=== PATIENT | female | born 1950 | race Caucasian/White ===

== ENCOUNTER 2019-06-16 05:57 | Day surgery (SDC) | payer MEDICARE, SELFPAY ==
[2019-06-15 13:33] VITALS: BMI 19.8
[2019-06-16] VITALS (9 sets, daily range): BP systolic 134–185; BP diastolic 72–98; PULSE 54–78; RESP 15–24; TEMP 36.6–37.2; O2SAT 87–99
--- NOTE | 2019-06-16 | CT_ITS ---
Guided Bronchoscopy Planning CT images; total exam DLP: 567.16 mGy-cm MTDD
[2019-06-16] MEDS: sodium chloride 0.9% 1,000 ML 30 ML IV (06:18)
--- NOTE | 2019-06-16 06:33 | P.HPUD_ITS ---
Surgery/Procedure H&P Update DATE OF PROCEDURE: June 16, 2019 The patient was recently seen and examined in the office. There is no signi ficant change in overall history and physical exam. The patient missed her appointment for pulmonary function testing. Interestingly, her oxygen saturation was 88% and she is requiring some oxygen to keep it above 88%. The patient does not use oxygen at home. I have discussed risks with benefits associated with the procedure. The patient appeared somewhat forgetful this morning. During the last office visit, the patient stated preference for a less invasive and radiation therapy however today, patient is stating that she would prefer surgery. It is unclear to me whether the patient has changed her mind or she has forgotten what she had told me before. DATE H&P PERFORMED: 06/13/19 PREOP DIAGNOSIS: Lung Cancer PLANNED PROCEDURE: Operation Date: 06/16/19 07:00 Proposed Procedures p Ebus 42836 99393 R91.8(Not Applicable) - MD joão Lebron(Not Applicable) - Darin Cardenas MD Bronchoscopy with inspection of the airway, endobronchial also guided transbronchial needle aspiration of lymph nodes and navigational bronchoscopy guided transbronchial biopsies, fine-needle aspiration and Cytobrush. Transthoracic fine-needle aspiration of the left upper lobe lung nodule.
--- NOTE | 2019-06-16 06:41 | P.ANESASSM_ITS ---
Pre-Anesthetic Assessment Pre-Anesthetic Assessment: Height/Weight: Height 1.68 m Weight 55.792 kg Temp Pulse Resp BP Pulse Ox 97.9 F 75 24 H 185/98 87 L 06/16/19 06:12 06/16/19 06:12 06/16/19 06:12 06/16/19 06:12 06/16/19 06:12 Preop Diagnosis: Lung Cancer Proposed Procedure: Operation Date: 06/16/19 07:00 Proposed Procedures p Ebus 91394 21328 R91.8(Not Applicable) - MD joão Lebron(Not Applicable) - Darin Cardenas MD Was Beta Latisha taken within 24 hours: Yes (last night) Last intake: Intake Last Liquid Date 06/15/19 Last Liquid Time 18:00 Last Solid Date 06/15/19 Last Solid Time 18:00 Social: Social History: Tobacco (1/2pk day) Exam: Pre-Anes Outpt Exam: alert and oriented x 3 Airway: Submandibular: WNL Cervical ROM: WNL MP: 2 Dentition: False Pulmonary: Pulmonary: COPD Comments: lung mass room air sat 86% CV/HEM: CV/HEM: CAD and OK Comments: CABG stents 3 yr ago. Sees Contact Center Representative in [facility] home. Seen 1 month ago. added add'l dose of Imdur. No other changes or complaints. : : None reported Hepatic: Hepatic: None reported GI: GI: None reported Metabolic: Metabolic: None reported Musc/skel: Musc/skel: None reported Neuropsych: Neuropsych: None reported Comments: difficulty remembering things Anesthetic Plan: ASA status: 4 Anesthesia: General Meds/Allergies Current Medications: Current Medications Generic Name Dose Route Start Last Admin Trade Name Freq PRN Reason Stop Dose Admin Sodium Chloride 1,000 mls @ 30 ml s/hr 06/16/19 06:00 06/16/19 06:18 Sodium Chloride 0.9% IV 06/17/19 05:59 30 mls/hr .Q24H CHANTAL Administration PFSH Anesthesia PFSH: Medical History Anxiety CAD (coronary artery disease) 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 Essential (primary) hypertension Hyperlipidemia Lung mass Surgical History (Updated 06/15/19 @ 13:25 by Radha Burch) History of hysterectomy Social History Smoking and tobacco status: current every day smoker cigarettes Packs smoked per day: 1 Years cigarettes smoked: 50 Quit status (tobacco): not considering quitting Smoking risk assessment/counseling performed?: Yes Alcohol intake: never Lives independently: Yes Household members: none Current occupational status: retired History of recent travel: No Current gender identity: Female Female Reproductive History: Date of last menstrual period: 04/05/79 Data Anesthesia Cardiac Studies: No Data to Display
--- NOTE | 2019-06-16 06:50 | ECG_ITS ---
Measurements Intervals [place] Rate: 68 P: 80 IA: 166 QRS: -47 QRSD: 128 T: 115 QT: 458 QTc: 488 SINUS RHYTHM MARKED LEFT AXIS DEVIATION [QRS AXIS < -30] POSSIBLE ANTERIOR MYOCARDIAL INFARCTION [30 ms Q WAVE IN V3/V4, OR R < 0.2 mV IN V4], OF INDETERMINATE AGE MODERATE T-WAVE ABNORMALITY, CONSIDER LATERAL ISCHEMIA [-0.1+ mV T WAVE IN I/aVL/V5/V6] No previous ECG available for comparison Electronically Signed On 06-16-2019 13:01:18 CDT by Jenae Easton M.D. [id number]
[2019-06-16] MEDS: ipratropium-albuterol 3 mL Neb INHALATION (07:42)
[2019-06-16] MEDS: lidocaine 1% INJ 20 mL INTRAVESIC (08:08)
[2019-06-16] MEDS: EPINEPHrine 1 mg/mL INJ XX (08:37)
--- NOTE | 2019-06-16 09:52 | SUR.PREOP ---
patient presented to Outpatient Surgery 06/16/19 at 0600 with oxygen saturation at 87% and below. Faxed and called HOME request for home oxygen.
--- NOTE | 2019-06-16 10:10 | PM.OP ---
Operative Report Date of procedure: June 16, 2019 Pre-op Diagnosis: Left upper lobe lung mass Post-op diagnosis: same Brief History: This is a 68-year-old lady coming in for a bronchoscopic evaluation for left upper lobe lung mass. Procedure: Name of the procedure: Bronchoscopy with inspection of the airway, bronchoalveolar lavage, transbronchial biopsies, fine-needle aspiration and Cytobrush under navigational guidance, endobronchial ultrasound-guided transbronchial needle aspiration of lymph nodes and control of bleeding. Indication: Left upper lobe lung mass Anesthesia: General anesthesia. Local anesthesia: The josue in the right and left mainstem bronchi were anesthetized with 1% lidocaine, 3 mL. Description of the procedure: The procedure was explained to the patient and the consent was obtained. The patient was brought to the OR. The patient underwent endotracheal intubation for general anesthesia. Following induction of general anesthesia, the bronchoscope was advanced through the ET tube. The lower trachea appeared to be normal, no endotracheal lesion was seen. The josue was sharp. The josue, the right and left mainstem bronchi are anesthetized with 1% lidocaine. In a systematic manner bilateral bronchial tree was then examined. The bronchoscope was advanced into the left mainstem bronchus. There was no erythema,mucus or areas of cobblestoning. The left upper lobe, lingula and left lower lobe bronchi were examined up to the third subsegmental level and no abnormalities were identified. There is no endobronchial lesion, active bleeding or mucous plug. The bronchoscope was then introduced into the right mainstem bronchus. The right upper lobe, right middle lobe and right lower lobe bronchi were examined up to the third subsegmental level and no abnormalities were identified. Using navigational bronchoscopy, transbronchial biopsies were performed from the left upper lobe lung mass. 7 samples are obtained. Fine-needle aspiration was performed under navigational guidance. Multiple specimens were obtained. Cytobrush was performed from the same lesion. Bronchoalveolar lavage was performed from the posterior segment of the left upper lobe. 60 mL of saline was used, fluid return was 20 mL. The fluid was bloody. The endobronchial ultrasound was introduced through the ET tube. No significant mediastinal or hilar lymphadenopathy was identified. Transbronchial needle aspiration was performed from 7 and 10 L lymph node stations. Samples: 1. The transbronchial biopsies are sent for histopathology 2. The fine-needle aspirations were sent for cytology. 3. The Cytobrush was sent for cytology. 4. The transbronchial needle aspiration of the aforementioned lymph node groups were sent for cytology. Complications: There was no immediate complications. The patient had some bleeding that was controlled with cold saline and epinephrine. Follow-up: 1. Wait for histopathology analysis. 2. Follow-up in the office in 2 weeks time.
== END 2019-06-16 11:53 | disposition home or self-care (01) ==
PROVIDERS: Family Provider Family Medicine; PCP Family Medicine; Visit Provider Internal Medicine Critical Care Medicine
PROC: BB4BZZZ Ultrasonography of Pleura (ICD-10-PCS; CPT 31623; principal; 2019-06-16 07:00)
PROC: 0BJ08ZZ Inspection of Tracheobronchial Tree, Via Natural or Artificial Opening Endoscopic (ICD-10-PCS; CPT 31622; 2019-06-16 07:00)
PROC: 0BJ08ZZ Inspection of Tracheobronchial Tree, Via Natural or Artificial Opening Endoscopic (ICD-10-PCS; CPT 31622; 2019-06-16 07:00)
DX: R91.8 Other nonspecific abnormal finding of lung field (principal); F17.210 Nicotine dependence, cigarettes, uncomplicated; J44.9 Chronic obstructive pulmonary disease, unspecified; I25.10 Atherosclerotic heart disease of native coronary artery without angina pectoris; I25.2 Old myocardial infarction; Z95.1 Presence of aortocoronary bypass graft; I10 Essential (primary) hypertension; E78.5 Hyperlipidemia, unspecified; Z79.82 Long term (current) use of aspirin
CPT/HCPCS: 31623; 31624; 31628; 31629; 31652; 12345; 77011; 88112; 88305; 88307; 93005; 94640; J0171; J2001; J2405; J2704; J2710; J3010; J3490; J7030

== ENCOUNTER 2019-07-31 07:39 | Inpatient (IN) | payer MEDICARE, SELFPAY ==
--- NOTE | 2019-07-27 12:40 | ECG_ITS ---
Measurements Intervals [place] Rate: 54 P: 81 NM: 149 QRS: -59 QRSD: 126 T: 106 QT: 486 QTc: 463 SINUS BRADYCARDIA POSSIBLE RIGHT ATRIAL ENLARGEMENT [0.25mV P WAVE] LEFT ATRIAL ENLARGEMENT [-0.15mV P WAVE IN V1/V2] MARKED LEFT AXIS DEVIATION [QRS AXIS < -30] POSSIBLE ANTERIOR MYOCARDIAL INFARCTION [30 ms Q WAVE IN V3/V4, OR R < 0.2 mV IN V4], OF INDETERMINATE AGE Compared to ECG 06/16/2019 07:39:30 Atrial abnormality now present Sinus rhythm no longer present T-wave abnormality no longer present Possible ischemia no longer present Myocardial infarct finding still present Electronically Signed On 07-27-2019 18:14:28 CDT by Lorene Ramirez M.D. [id number]
--- NOTE | 2019-07-27 12:58 | PC.NURSE ---
pt stated she is working on her advance directive and will bring with her day of surgery.
--- NOTE | 2019-07-27 13:31 | ANES.PREANE2 ---
Pre-Anesthetic Assessment Pre-Anesthetic Assessment: Height/Weight: Height 1.68 m Preop Diagnosis: Left upper lobe lung mass Proposed Procedure: Operation Date: 07/31/19 09:40 Proposed Procedures p Lobectomy 37526 R91.8(Not Applicable) - Jp Olguin MD Social: Social History: Alcohol (occ) and Tobacco (quit one week ago) Exam: Pre-Anes Outpt Exam: alert, oriented x 3, clear to auscultation bilaterally and regular rate & rhythm Airway: Submandibular: WNL Cervical ROM: WNL MP: 1 Dentition: False (upper and lower) History/ROS: No significant history except as noted Pulmonary: Pulmonary: COPD and GALVAN CV/HEM: CV/HEM: CAD and HTN : : None reported Hepatic: Hepatic: None reported GI: GI: None reported Metabolic: Metabolic: Hyperlipidemia Musc/skel: Musc/skel: OA/DJD Neuropsych: Neuropsych: Anxiety and Depression Anesthetic Plan: ASA status: 3 Anesthesia: Anesthesia Evaluation, Eval. 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 Essential (primary) hypertension Hyperlipidemia Lung mass Surgical History History of hysterectomy Hx of CABG Presence of stent in coronary artery Social History Smoking and tobacco status: former smoker Quit status (tobacco): has quit using tobacco Year quit tobacco: 07/23 Smoking risk assessment/counseling performed?: Yes Alcohol intake: never Lives independently: Yes Household members: none Current occupational status: retired History of recent travel: No Current gender identity: Female Female Reproductive History: Date of last menstrual period: 04/05/79 Data Anesthesia Cardiac Studies: No Data to Display
[2019-07-27 13:46] LABS: Basophils # 0.1 10^3/uL (0.0-0.1); Basophils % 1.3 %; Eosinophils # 0.2 10^3/uL (0.0-0.8); Eosinophils % 2.1 %; Hematocrit 43.6 % (37.0-47.0); Hemoglobin 13.1 g/dL (11.5-15.3); Lymphocytes # 2.6 10^3/uL (0.8-4.8); Mean Corpuscular Hemoglobin 27.1 pg (28.0-34.0); Mean Corpuscular Volume 90.1 fL (81-99); Mean Platelet Volume 11.1 fL (7.4-10.4); Monocytes # 0.5 10^3/uL (0.2-0.9); Monocytes % 6.5 %; Neutrophils # 4.8 10^3/uL (1.8-7.7); Neutrophils % 58.7 %; Nucleated Red Blood Cells % 0 %; Platelet Count 294 10^3/cmm (130-400); Red Blood Count 4.84 10^6/uL (4.1-5.3); Red Cell Distribution Width 18.9 % (12.1-15.1); White Blood Count 8.3 10^3/uL (4.0-10.0)
[2019-07-27 13:58] LABS: INR 0.97 (0.8-1.2)
[2019-07-27 13:59] LABS: Blood Urea Nitrogen 13 mg/dL (8-23); Calcium 9.3 mg/dL (8.5-10.5); Carbon Dioxide 32 mmol/L (22-29); Chloride 100 mmol/L (98-107); Glomerular Filtration Rate 98.8 mL/min (90-130); Glucose 142 mg/dL (65-115); Osmolality Calculated 291 mOsm/kg (285-295); Sodium 141 mmol/L (136-145)
[2019-07-31] VITALS (20 sets, daily range): BP systolic 112–154; BP diastolic 59–97; PULSE 47–66; RESP 16–21; TEMP 36.2–36.6; O2SAT 95–99
--- NOTE | 2019-07-31 08:21 | P.ANESUD_ITS ---
Pre-Anesthetic Update Pre-Anesthetic Assessment: Date of Surgery/Procedure: 07/31/19 Preop Tracey gnosis: Left upper lobe lung mass Proposed Procedure: Operation Date: 07/31/19 09:40 Proposed Procedures p Lobectomy 72139 R91.8(Not Applicable) - Jp Olguin MD Any changes to Pre-Anesthetic Assessment?: No Last Intake: NPO > 8 hrs Labs Last 48hrs: Laboratory Results - last 48 hr 07/27/19 13:15 Blood Type O Positive Rho(D) Type Positive Antibody Screen Negative Crossmatch See Detail Exam: Pre-Anes Outpt Exam: alert, oriented x 3, clear to auscultation bilaterally and regular rate & rhythm Other Pertinent Information: Other Pertinent Information: Plavix last taken on 07/24 - no other blood thinners, patient agrees to epidural Cardiac Studies: No Data to Display
[2019-07-31 08:33] LABS: Add Urine Microscopic? YES; Bilirubin Urine Neg (NEGATIVE); Blood Urine Neg (Negative); Glucose Urine UA Norm (Normal); Ketones Urine Negative (Negative); Leukocyte Esterase Urine Trace (Negative); Nitrate Urine Negative (Negative); Protein Urine Neg (Negative); Specific Gravity, Urine 1.025 (1.005-1.030); Urine Appearance Clear (CLEAR); Urine Color Yellow (Yellow); Urobilinogen Urine Norm (Negative)
[2019-07-31] MEDS: sodium chloride 0.9% 1,000 ML 30 ML IV (08:33)
[2019-07-31 08:42] LABS: Add Urine Culture? No; Bacteria Urine 1+; Mucus Urine 1+; Squamous Epithelial Cell Urine 0-4 (0-5); WBC Urine RARE /hpf (0-5)
[2019-07-31] MEDS: midazolam 1 mg/mL INJ 2 mL 2 MG IVP (08:43)
--- NOTE | 2019-07-31 09:04 | P.ANES_ITS ---
Anesthesia Procedures Procedure/Date: 07/31/19 Epidural: Time Out Performed: Yes Consents Signed: Procedure Consent Consent: requested by attending/covering physician, from patient, risks and benefits reviewed and patient agrees to proceed Thoracic Level: other (T6-7) Epidural position: sitting Epidural procedure: sterile prep of area, 1% lid ocaine to numb the area, 18 g needle, negative for paresthesia passed, neg for paresthesia, test dose given, 1.5% xylocaine 1:200k epi (3 ml), no systemic response, sterile dressing applied and L.U.D. no apparent complications Additional Comments: LOSS of resistance at 5, threaded to 11 cm
--- NOTE | 2019-07-31 09:41 | W.PM.OPSUD ---
Surgery/Procedure H&P Update DATE OF PROCEDURE: July 31, 2019 DATE H&P PERFORMED: 07/27/19 H&P UPDATE INFORMATION: I have reviewed H&P completed within last 30 days, I have examined patient prior to procedure and No changes to prior documentation CHANGES TO PREVIOUS DOCUMENTATION: Patient has been appropriately marked this morning with a day of surgery for left-sided thoracotomy. PREOP DIAGNOSIS: Left upper lobe lung mass PRIMARY INDICATION FOR PROCEDURE: Cavitary lesion left upper lobe previously documented malignancy by navigational directed bronchoscopic biopsy by Dr. Cardenas. Resection as been recommended. PLANNED PROCEDURE: Operation Date: 07/31/19 09:40 Proposed Procedures p Lobectomy 32932 R91.8(Not Applicable) - Jp Olguin MD
[2019-07-31] MEDS: vancomycin 1,000 MG SDV 2000 MG IRRIGATION (10:54)
--- NOTE | 2019-07-31 11:01 | SUR.OPER ---
1058 - Pt's sister Ramya notified of surgery start via her cell phone.
--- NOTE | 2019-07-31 13:16 | P.OP_ITS ---
Operative Report Date of procedure: July 31, 2019 Pre-op Diagnosis: Left upper lobe lung mass Post-op diagnosis: same Procedure Done: Left upper lobectomy Specimens removed/disposition: Left upper lobe. Frozen section of bronchial margin was without evidence for malignancy Lymph node harvesting from the left hilum and left AP window Surgeon: Jp Olguin Anesthesia: General (Double-lumen endotracheal) and Epidural Estimated blood loss (mL): 150 IV fluids (mL): 800 Complications: None: Post procedure chest x-ray pending Findings: Extensive adhesions medially and apically Condition: stable Disposition: ICU Brief History: 68-year-old female originally presented after noting left shoulder discomfort. She was seen by her primary care provider where chest x- ray of the left upper lobe lesion. She is undergone Evaluation including CT scan and PET scan imaging which does show increased activity. She was seen by Dr. Cardenas underwent navigational endobronchial biopsy with suspicious findings on pathology. Left upper lobectomy was recommended. Details risk procedure carefully and frankly discussed. Proper consents have been reviewed and signed. Procedure: Thoracic epidural catheter was placed prior to entering the surgical suite. Ms. Mae underwent general endotracheal anesthesia with double-lumen endotracheal tube placed. Appropriate invasive lines were placed. She was placed in the right lateral decubitus position over axillary roll and protective padding. Her entire left chest was sterilely prepped and draped. A muscle- sparing limited left thoracotomy incision was made with cautery used to control bleeding. Latissimus muscle was divided. The anterior serratus muscle was retracted but not divided. The fifth intercostal space was entered. Moist laparotomy pads and the Finochietto retractor were placed. The chest was car efully opened. Left upper lobe mass could be easily palpated with associated parenchymal pleural dimpling. There were extensive adhesions medially and apically which required meticulous dissection with cautery and Metzenbaum scissors to release. This was most probably associated with her prior CABG and I suspect probably harvesting of the left internal mammary artery. The pleura was then opened circumferentially around the hilum. Inferior pulmonary ligament was taken down. Hilar dissection was initiated anteriorly and superiorly. The superior pulmonary vein was controlled and stapled. It was then divided. Dissection was then continued cranially isolating branches of the pulmonary artery to the left upper lobe. These were also taken down ligated and divided. The fissure was complete, therefore dissection of these vessels was not problematic. Posteriorly, the bronchus to the left upper lobe was dissected free. Next, left upper lobe bronchus was stapled and sharply divided with scalpel. Left upper lobe specimen was removed. Frozen section pathology report reveals a the bronchial margin was free of disease. Lymph node sampling was then performed in the mediastinum at the AP window and in the left hilum. The entire chest was irrigated with large amounts of antibiotic solution. Left lower lobe was reinflated. No substantial air leaks were identified. 28 Kazakh drain was placed over the diaphragm and out to the apex. This was connected to Pleur-evac suction. Retractor and sponges were removed. Sponge and needle count was correct. Chest wall was reapproximated with interrupted #1 Vicryl suture. The fascia was closed with running 0 Vicryl suture. The subcutaneous layer was closed with 2-0 Vicryl suture. Skin was reapproximated in a subcuticular manner with 3-0 Monocryl suture. Sterile dressing was applied. Patient was returned to the supine position and awakened from anesthesia. She was extubated. She was then transferred to the ICU. Her sister was counseled by phone. I have conferred with our pathology colleagues. Chest x-ray is pending.
--- NOTE | 2019-07-31 13:58 | XR_ITS ---
WS: [id number] PORTABLE CHEST HISTORY: post op lobectomy COMPARISON: 12/30/2005 Prior LEFT upper lobectomy. Single LEFT chest tube with tip directed superiorly. There is a very tiny pneumothorax at the apex. Numerous surgical clips at the LEFT hilum. Chronic emphysematous changes i n the RIGHT lung. Prior CABG. Small amount of subcutaneous emphysema over the LEFT thorax. Cardiac size: Normal. Mediastinum/Aorta: Mild atherosclerosis aorta. No osseous abnormality seen. XR/XR chest 1V portable [id number] IMPRESSION: 1. Status post LEFT upper lobectomy and LEFT subcutaneous emphysema. 2. Single LEFT chest tube with tiny residual pneumothorax at the apex.
[2019-07-31] MEDS: ipratropium-albuterol 3 mL Neb INHALATION (15:53)
[2019-07-31] MEDS: lactated ringers 1,000 ML 100 ML IV (17:22)
[2019-07-31] MEDS: metoprolol tartrate 50 mg Tablet 100 MG PO (18:18)
[2019-07-31] MEDS: gabapentin 300 mg Capsule PO ×2 (18:18→21:13)
[2019-07-31] MEDS: isosorbide mononitrate ER 30 mg Tablet PO (18:19)
[2019-07-31] MEDS: ketorolac 30 mg/mL INJ IVP (18:21)
[2019-08-01] VITALS (19 sets, daily range): BP systolic 108–144; BP diastolic 50–87; PULSE 63–77; RESP 14–23; TEMP 36.7–36.9; O2SAT 93–100
[2019-08-01] MEDS: ketorolac 30 mg/mL INJ IVP ×3 (00:25→14:24)
[2019-08-01] MEDS: morphine 4 mg/mL SDV 1 mL 2 MG IVP ×2 (02:40→08:40)
[2019-08-01] MEDS: lactated ringers 1,000 ML 100 ML IV ×2 (03:25→13:26)
[2019-08-01 04:38] LABS: Basophils % 0.2 %; Hematocrit 35.4 % (37.0-47.0); Hemoglobin 10.6 g/dL (11.5-15.3); Lymphocytes # 1.2 10^3/uL (0.8-4.8); Lymphocytes % 12.2 %; Mean Corpuscular HGB Conc 29.9 g/dL (30.0-36.0); Mean Corpuscular Hemoglobin 27.6 pg (28.0-34.0); Mean Corpuscular Volume 92.2 fL (81-99); Mean Platelet Volume 11.2 fL (7.4-10.4); Monocytes # 0.8 10^3/uL (0.2-0.9); Monocytes % 8.3 %; Neutrophils # 7.5 10^3/uL (1.8-7.7); Nucleated Red Blood Cells % 0 %; Platelet Count 226 10^3/cmm (130-400); Red Blood Count 3.84 10^6/uL (4.1-5.3); Red Cell Distribution Width 18.9 % (12.1-15.1); White Blood Count 9.4 10^3/uL (4.0-10.0)
[2019-08-01 05:07] LABS: Anion Gap 12.1 (5-19); Blood Urea Nitrogen 16 mg/dL (8-23); Calcium 8.6 mg/dL (8.5-10.5); Carbon Dioxide 30 mmol/L (22-29); Chloride 105 mmol/L (98-107); Glucose 120 mg/dL (65-115); Osmolality Calculated 294 mOsm/kg (285-295); Potassium 4.1 mmol/L (3.5-5.1); Sodium 143 mmol/L (136-145)
--- NOTE | 2019-08-01 06:00 | XR_ITS ---
WS: [id number] PORTABLE CHEST HISTORY: POD#1 s/p Left upper lobectomy COMPARISON: 07/31/2019 Status post CABG. Single LEFT thoracostomy tube is present with tip directed superiorly. Suspect very tiny residual apical pneumothorax. Small amount of persistent LEFT subcutaneous emphysema. Slight vo lume loss LEFT thorax due to LEFT upper lobectomy. Hyperexpanded lungs with evidence for chronic emphysema. No pneumonia. No pleural effusion or pneumot horax. Cardiac size: Normal. Mediastinum/Aorta: Mild atherosclerosis aorta, Unchanged. No osseous abnormality seen. XR/XR chest 1V portable [id number] IMPRESSION: 1. Status post LEFT upper lobectomy. 2. Single LEFT thoracostomy tube with tiny residual pneumothorax. 3. Satisfactory postoperative appearance.
--- NOTE | 2019-08-01 07:07 | PM.PN ---
Subjective Subjective: Interval history: Postop day #1 status post left upper lobectomy. Up in chair on rounds. Looks very good. Pain is under good control with epidural catheter. Chest x-ray remains clear. Chest tube output 600 cc since surgery. Vitals/I&O/Wt Last Vital Signs Temp 98.3 F 08/01/19 06:00 Pulse 68 08/01/19 06:00 Resp 17 08/01/19 06:00 BP 121/87 08/01/19 06:00 Pulse Ox 95 08/01/19 06:00 07/31/19 08/01/19 08/01/19 22:59 06:59 14:59 Intake Total 1000 / 1050 Output Total 470 / 470 745 / 1215 Balance -470 / -420 255 / -165 Weight last 48 hrs Weight 120 lb Physical Exam Chest: OTHER: Dressings are in place. Chest wall stable. Resp: COMMON NORMALS: clear to auscultation bilaterally EFFORT & INSPECTION: Yes able to speak in complete sentences AUSCULTATION: clear to auscultation bilaterally Cardio: COMMON NORMALS: regular rate, regular rhythm and S1 normal heart sound RATE: regular rate RHYTHM: regular rhythm HEART SOUNDS: S1 normal Urinary Catheter Management^: Yeager: Cath Placed During This Visit: yes Reason for Continuing Indwelling Catheter: Accurate Measurement of Urinary Output in Critically Ill Patients Urinary Catheter Date of Insertion: 07/31/19 Urinary Catheter Time of Insertion: 10:05 Data : 08/01/19 04:05 08/01/19 04:05 A&P Assessment and plan (1) Status post lobectomy of lung: Postop day #1 status post left upper lobectomy Continue pulmonary rehab. Chest x-ray in a.m. Status: Acute Attestations Medical Necessity Statement*: Postop day #1 status post left upper lobectomy Coding Level of Care Code Acute Director Transition for Chg Fwd Diagnoses Status post lobectomy of lung Z90.2
[2019-08-01] MEDS: ipratropium-albuterol 3 mL Neb INHALATION (07:44)
--- NOTE | 2019-08-01 07:58 | ANE.PACU2 ---
 Inpatient post-anesthesia follow up: Airway intact: Yes Vital signs: Temperature 98.3 F Pulse Rate 68 Respiratory Rate 18 Blood Pressure 121/87 Pulse Oximetry 100 Oxygen Delivery Me thod Nasal Cannula Oxygen Flow Rate 3 Fraction of Inspir ed Oxygen 30 Hydration adequate: Yes Nausea and vomiting: No Pain level: 1 Mental status: Baseline Additional Comments: Epidural providing adequate relief
[2019-08-01] MEDS: HYDROcodone-acetaminophen 5-325 mg Tablet 1 TAB PO ×3 (08:14→20:14)
[2019-08-01] MEDS: isosorbide mononitrate ER 30 mg Tablet PO ×2 (08:41→17:10)
[2019-08-01] MEDS: escitalopram 10 mg Tablet 20 MG PO (08:41)
[2019-08-01] MEDS: pantoprazole DR 40 mg Tablet PO (08:41)
[2019-08-01] MEDS: gabapentin 300 mg Capsule PO ×4 (08:42→21:16)
[2019-08-01] MEDS: metoprolol tartrate 50 mg Tablet 100 MG PO ×2 (08:42→17:10)
[2019-08-01] MEDS: LORazepam 0.5 mg Tablet PO (21:21)
[2019-08-02] VITALS (11 sets, daily range): BP systolic 113–188; BP diastolic 64–92; PULSE 59–98; RESP 17–20; TEMP 36.3–37.3; O2SAT 91–96
[2019-08-02] MEDS: HYDROcodone-acetaminophen 7.5-325 mg Tablet 1 TAB PO ×2 (03:09→15:36)
--- NOTE | 2019-08-02 06:00 | XR_ITS ---
WS: [id number] PORTABLE CHEST HISTORY: Postop day #2 status post left upper lobectomy COMPARISON: 08/01/2019 Status post CABG. Single LEFT chest tube remains in good position. Suspect there is a very tiny LEFT apical pneumothora x. Improving subcutaneous emphysema. Hyperinflated lungs with changes of emphysema. New small RIGHT pleural effusion. Vasculature is also slightly more prominent. Cardiac size: Mildly enlarged cardiac silhouette. Small amount of pneumopericardium is suspected. Thi s is adjacent to the RIGHT heart and not present on the prior study. Mediastinum/Aorta: Mild atherosclerosis aorta. Surgical clips at the LEFT hilum. Calcific densities along the rotator cuff. XR/XR chest 1V portable [id number] IMPRESSION: 1. LEFT thoracostomy tube remains in good position. Very tiny LEFT apical pneu mothorax is still suspected. 2. New small RIGHT pleural effusion. 3. Very mild pulmonary congestion has developed. 4. Minimal pneumopericardium suspected. Could also be an artifact related to M ach band.
--- NOTE | 2019-08-02 07:19 | PM.PN ---
Subjective Subjective: Interval history: Postop day #2 status post left upper lobectomy. Chest tube output about 450 cc the past 10 hours. Still fairly sanguinous though beginning to clear up. Chest x-ray remains quite clear. She did have a clearing cough this morning but without production. O2 saturation however was substantially low as she took her oxygen off during the night. It was reading 76% on room air. With 2 L nasal cannula it was up to about 90%. She does utilize oxygen at home and we will confirm that appropriate measures were made for a portable unit as well as a home unit prior to discharge. Her oxygen supplier is HOME. Vitals/I&O/Wt Last Vital Signs Temp 97.5 F L 08/02/19 07:18 Pulse 72 08/02/19 07:18 Resp 20 H 08/02/19 07:18 BP 113/64 08/02/19 07:18 Pulse Ox 93 08/02/19 07:18 08/01/19 08/02/19 08/02/19 22:59 06:59 14:59 Intake Total 820 / 2300 Output Total 750 / 750 1210 / 1960 Balance 70 / 1550 -1210 / 340 Weight last 48 hrs Weight 120 lb Physical Exam Chest: COMMONS NORMALS: inspection of chest normal (Chest wall stable.) Resp: COMMON NORMALS: normal respiratory effort and clear to auscultation bilaterally AUSCULTATION: clear to auscultation bilaterally Cardio: COMMON NORMALS: regular rate and regular rhythm RATE: regular rate RHYTHM: regular rhythm Extremity: COMMON NORMALS: no clubbing, cyanosis or edema Neuro: COMMON NORMALS: no focal motor deficits and no sensory deficits noted Urinary Catheter Management^: Yeager: Cath Placed During This Visit: yes Reason for Continuing Indwelling Catheter: Accurate Measurement of Urinary Output in Critically Ill Patients Urinary Catheter Date of Insertion: 07/31/19 Urinary Catheter Time of Insertion: 10:05 Data : 08/01/19 04:05 08/01/19 04:05 A&P Assessment and plan (1) Status post lobectomy of lung: Postop day #2 status post left upper lobectomy. Pathology pending. Plan: Will need to continue chest tubes for at least another 48 hours I would expect due to output. No air leak. I will place to [facility]. Chest x-ray in a.m. 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
[2019-08-02] MEDS: TRAMadol 50 mg Tablet PO ×2 (07:44→19:53)
[2019-08-02] MEDS: gabapentin 300 mg Capsule PO ×4 (08:32→19:53)
[2019-08-02] MEDS: escitalopram 10 mg Tablet 20 MG PO (08:32)
[2019-08-02] MEDS: clopidogrel 75 mg Tablet PO (08:32)
[2019-08-02] MEDS: metoprolol tartrate 50 mg Tablet 100 MG PO ×2 (08:32→19:53)
[2019-08-02] MEDS: isosorbide mononitrate ER 30 mg Tablet PO ×2 (08:32→16:57)
[2019-08-02] MEDS: pantoprazole DR 40 mg Tablet PO (08:32)
--- NOTE | 2019-08-02 10:00 | PM.MISC ---
Miscellaneous Note Purpose of Documentation: Epidural progress note Note: Patient's epidural still in place, some slight leakage of soln occuring, but dressing intact. Patient forgot about her bolus button last night and had increased pain. Encouraged patient to use her button. Pain level currently a 3, along her L chest no signs of infection or tenderness to palpation at epidural site no LE weakness - up and walking down the halls
--- NOTE | 2019-08-02 16:50 | PC.NURSE ---
WASTED 12ML OF OVERFILL OF ROPIVACAINE WITH KAMERON KAUR.
--- NOTE | 2019-08-02 17:25 | NUR.SHIFT ---
PATIENT HAS DONE WELL TODAY. STILL COMPLAINING OF PAIN, BUT FEELS THAT IT IS CONTROLLED WITH THE EPIDURAL AND ORAL PAIN MEDICATIONS. PATIENT HAS WALKED AND BEEN UP IN THE CHAIR THE MAJORITY OF THE DAY. PATIENT HAS HAD 450ML OF SANGUINOUS OUTPUT IN THE CHEST TUBE. SURGICAL DRESSING C/D/I. REQUIRING 2L OF OXYGEN. EXCELLENT URINE OUTPUT. ENCOURAGING THE USE OF THE INCENTIVE SPIROMETER ALONG WITH DEEP BREATHING AND COUGHING. PATIENT'S LLL WAS CLEAR UPON AUSCULTATION THIS AM, BUT WORSENED AFTER HER NAP THIS AFTERNOON. PATIENT BACK IN THE CHAIR PRACTICING DEEP BREATHING AND COUGHING AT THIS TIME.
[2019-08-02] MEDS: LORazepam 0.5 mg Tablet PO (19:53)
[2019-08-02] MEDS: ipratropium-albuterol 3 mL Neb INHALATION (20:15)
[2019-08-03] VITALS (14 sets, daily range): BP systolic 140–162; BP diastolic 62–80; PULSE 52–69; RESP 16–20; TEMP 36.7–37.2; O2SAT 91–99
--- NOTE | 2019-08-03 06:00 | XR_ITS ---
WS: [id number] PORTABLE CHEST HISTORY: POD #3 status post left upper lobectomy. Drain to waterseal COMPARISON: 08/02/2019 Single left-sided thoracostomy tube is present. There are several small apical pneumothorax. No progr ession. Surgical clips at the LEFT hilum from LEFT upper lobectomy. Increasing atelectasis in the central LEF T lung. No pleural effusion. Cardiac size: Heart size is normal. There is increasing lucency around the heart suggesting pneumoper icardium. Mediastinum/Aorta: Mild atelectasis adjacent to the aorta in the LEFT heart. Slight change in the con tour of the aortic arch/mediastinum since the prior study with increasing soft tissue which is minima l. No osseous abnormality seen. XR/XR chest 1V portable [id number] IMPRESSION: 1. Left-sided thoracostomy tube with tip directed superiorly is unchanged. 2. Persistent small apical pneumothorax. 3. New atelectasis central LEFT lung. 4. Increase in lucency around the heart suggesting pneumopericardium. 5. New areas of atelectasis adjacent to the heart and aortic arch. There has b een a slight change in the contour of the mediastinum at the level of the posts urgical clips. May be due to the atelectasis and slight rotation. Suggest attila nued follow-up radiographs.
--- NOTE | 2019-08-03 06:32 | PC.NURSE ---
dr giles wanting to pull epidural but wanting morning dose plavix stopped if ok with dr reno. notified dr reno. ok to stop plavix and place on 81mg aspirin daily in replace.
[2019-08-03] MEDS: HYDROcodone-acetaminophen 7.5-325 mg Tablet 1 TAB PO (06:38)
--- NOTE | 2019-08-03 08:10 | P.PN_ITS ---
Subjective Subjective: Interval history: No complaints this morning on rounds. Slept well last night. Dr. Adams is to remove the epidural catheter today. Chest x-ray revealed some mid left lung field early atelectasis. No substantial fluid collections. There is a small lateral apical pneumothorax which is slightly more prominent on today's exam, now that she is been on waterseal since yesterday afternoon. No substantial air leak was noted. Approximate 300 cc chest tube output overnight. Still fairly sanguinous but slowly clearing. Vitals/I&O/Wt Last Vital Signs Temp 98.8 F 08/03/19 07:55 Pulse 56 L 08/03/19 07:55 Resp 16 08/03/19 07:55 BP 142/62 08/03/19 07:55 Pulse Ox 95 08/03/19 07:55 08/02/19 08/03/19 08/03/19 22:59 06:59 14:59 Intake Total 640 / 1000 Output Total 2250 / 3250 1340 / 4590 Balance -1610 / -2250 -1340 / -3590 Physical Exam Chest: COMMONS NORMALS: inspection of chest normal (Dressings are in place. Chest wall stable. No substantial subcutaneous emphysema.) Resp: COMMON NORMALS: normal respiratory effort and clear to auscultation bilaterally AUSCULTATION: clear to auscultation bilaterally OTHER: Good and clearing effective cough Cardio: COMMON NORMALS: regular rate and regular rhythm RATE: regular rate RHYTHM: regular rhythm Urinary Catheter Management^: Yeager: Cath Placed During This Visit: yes Reason for Continuing Indwelling Catheter: Accurate Measurement of Urinary Ou tput in Critically Ill Patients Urinary Catheter Date of Insertion: 07/31/19 Urinary Catheter Time of Insertion: 10:05 Data : 08/01/19 04:05 08/01/19 04:05 A&P Assessment and plan (1) Status post lobectomy of lung: Postop day #3 status post left upper lobectomy. Pathology pending. Small apical pneumothorax laterally since on waterseal. Plan: Chest x-ray and CBC in a.m. Increase activity and increase ambulation. Chest tube still required due to continued substantial output Status: Acute Attestations Medical Necessity Statement*: Status post left upper lobectomy. Pathology pending Time Spent in Patient Care: 16 - 35 minutes Coding Level of Care Code Acute Senior Salesforce Developer for Chg Fwd Diagnoses Status post lobectomy of lung Z90.2
--- NOTE | 2019-08-03 08:43 | P.MISC_ITS ---
Miscellaneous Note Purpose of Documentation: Epidural progress note Note: Upon reviewing patient's medications this morning, I noted that Plavix had been given 08/01 at 0832. Per [place] [employer] and pain medication's guidelines, an epidural catheter may be safely maintained for 1-2 days after giving plavix due to its delayed onset of its antiplatelet effect, provided no loading dose has been given. Because the plavix had been given, I decided to discontinue at pull the epidural catheter at 0630 on 08/02 to help decrease risk of epidural bleeding. Slight bleeding was noted with removal. I have ordered the plavix and toradol to be held. Toradaol may be resumed Wednesday providing she experiences no neurologic symptoms, possibly sooner. In addition, I have ordered oxycodone 5 mg q 4 hrs prn, morphine IV for breakthrough pain, and scheduled tylenol 1000 mg q 8hrs, and continued patient's gabapentin and tramadol. Oxycodone may be increased to 10 mg if pain control is inadequate. Informed nurse to report any increased weakness or numbness and to check epidural site. Also informed patient to look out for these signs and symptoms. At approximately 0845 i re-examined patient. She is having increased incisional pain and there appears to be small hematoma under skin at epidural site, but no active bleeding. I informed patient of her pain medication options and reminded her she must ask for these medications.
[2019-08-03] MEDS: gabapentin 300 mg Capsule PO ×4 (08:46→21:51)
[2019-08-03] MEDS: pantoprazole DR 40 mg Tablet PO (08:47)
[2019-08-03] MEDS: isosorbide mononitrate ER 30 mg Tablet PO ×2 (08:47→17:43)
[2019-08-03] MEDS: escitalopram 10 mg Tablet 20 MG PO (08:47)
[2019-08-03] MEDS: acetaminophen 500 mg Tablet 1000 MG PO ×2 (08:47→17:43)
[2019-08-03] MEDS: metoprolol tartrate 50 mg Tablet 100 MG PO ×2 (08:47→17:43)
[2019-08-03] MEDS: aspirin 81 mg Chew Tablet PO (08:47)
[2019-08-03] MEDS: oxyCODONE 5 mg IR Tab/Cap PO ×4 (09:07→21:51)
--- NOTE | 2019-08-03 10:10 | PC.SOCIAL ---
IMM Update Pg 2 of IMM given and explained to patient who verbalized understanding. Initialed, dated, and timed and placed in chart. Copy provided to patient.
--- NOTE | 2019-08-03 10:38 | PC.CHAP ---
Pastoral Care Encounter/Spiritual Assessment Type of Contact [x] Declined online education manager visit [] Patient/Family/Request visit [] Outpatient visit [] Follow-up visit [] Physician referral [] Code/Alert [] Routine visit [] Staff referral [] Actively dying [] Patient sleeping [] Family support [] [] Out of room [] Palliative care [] [] Receiving care in room [] Pre-surgical visit [] Trauma [] Long length of stay [] ICU visit [] Other: Relational/Emotional Strength [] Patient feels connected with others/family/visitors/staff [] Distress [] Loneliness/isolation [] Abandonment Spirituality of Patient [] Person of Rpeeti [] Attends Synagogue of their Preeti [] Believes in Prayer [] Reads Bible or Orthodox materials [] There are Spiritual issues to be addressed Elevator Inspector Interventions [] Prayer [] Active listening [] Non-anxious presence [] Spiritual/emotional support [] Crisis/trauma care [] Spiritual counseling [] Bereavement support [] Provided bereavement packet [] Provided Bible/devotional materials [] Provided toy/stuffed animal, coloring book to patient or family member [] Provided Communion [] Anointing/Clark [] Salvation [] Completed spiritual assessment [] Other: Impact on Illness or Injury [] Angry [] Fearful [] Anxious [] Often cries [] Exhaustion [] Unable to work [] Unable to attend baptism [] Unable to walk/stand [] Unable to read [] Unable to drive [] Unable to eat/drink [] Unable to sleep [] Unable to be with family [] Patient intubated [] Other: Summary Patient declined visit stating that she felt it was evasive into her personal preeti. Time spent with patient 2 minutes
[2019-08-03] MEDS: ipratropium-albuterol 3 mL Neb INHALATION (14:15)
[2019-08-03] MEDS: TRAMadol 50 mg Tablet PO (19:47)
[2019-08-04] VITALS (12 sets, daily range): BP systolic 141–184; BP diastolic 63–83; PULSE 57–72; RESP 16–18; TEMP 36.6–37.3; O2SAT 84–99
[2019-08-04] MEDS: acetaminophen 500 mg Tablet 1000 MG PO ×3 (00:04→17:33)
--- NOTE | 2019-08-04 00:12 | PC.NURSE ---
Crepitus Pt. has very slight crepitus to left posterior back, directly below the lobectomy incision. Dressing is CD&I with no drainage noted. Pt. has no new complaints of pain or changes in breathing. Chest tube remains functional with fluctuation, no air leak noted, dressing secure. Chest tube container secured to floor upright.
[2019-08-04 02:12] LABS: Basophils # 0.1 10^3/uL (0.0-0.1); Basophils % 0.8 %; Eosinophils # 0.3 10^3/uL (0.0-0.8); Eosinophils % 3.8 %; Hematocrit 31.6 % (37.0-47.0); Hemoglobin 9.4 g/dL (11.5-15.3); Lymphocytes % 26.5 %; Mean Corpuscular HGB Conc 29.7 g/dL (30.0-36.0); Mean Corpuscular Hemoglobin 27.7 pg (28.0-34.0); Mean Corpuscular Volume 93.2 fL (81-99); Mean Platelet Volume 10.7 fL (7.4-10.4); Monocytes # 0.9 10^3/uL (0.2-0.9); Monocytes % 12.3 %; Neutrophils # 4.2 10^3/uL (1.8-7.7); Neutrophils % 56.3 %; Nucleated Red Blood Cells % 0 %; Platelet Count 216 10^3/cmm (130-400); Red Blood Count 3.39 10^6/uL (4.1-5.3); Red Cell Distribution Width 18.3 % (12.1-15.1); White Blood Count 7.4 10^3/uL (4.0-10.0)
[2019-08-04 02:31] LABS: Anion Gap 9.6 (5-19); Blood Urea Nitrogen 11 mg/dL (8-23); Calcium 8.9 mg/dL (8.5-10.5); Carbon Dioxide 36 mmol/L (22-29); Chloride 103 mmol/L (98-107); Glucose 96 mg/dL (65-115); Osmolality Calculated 294 mOsm/kg (285-295); Potassium 4.6 mmol/L (3.5-5.1); Sodium 144 mmol/L (136-145)
[2019-08-04] MEDS: oxyCODONE 5 mg IR Tab/Cap PO (03:33)
--- NOTE | 2019-08-04 06:00 | XR_ITS ---
WS: [id number] PORTABLE CHEST HISTORY: Postop day #4 status post left upper lobectomy COMPARISON: 08/03/2019 Persistent LEFT thoracostomy tube with tip directed superiorly. There is still a very tiny apical pne umothorax. No midline shift. Postsurgical changes of LEFT upper lobectomy. RIGHT lung is clear. Small persistent RIGHT pleural effusion. Cardiac size: Cardiac size is normal. Previously described pneumopericardium is a resolved. Mediastinum/Aorta: No mediastinal widening. Less atelectasis adjacent to the aortic arch. No osseous abnormality seen. XR/XR chest 1V portable [id number] IMPRESSION: 1. LEFT thoracostomy tube with very tiny LEFT apical pneumothorax persists. 2. Small RIGHT pleural effusion. 3. Resolved pneumopericardium and improved aeration adjacent to the LEFT aorti c arch.
--- NOTE | 2019-08-04 07:55 | PM.MISC ---
Miscellaneous Note Purpose of Documentation: epidural follow up Note: No lower extremity weakness, but patient didn't get a chance to get up and walk yesterday. Pain at L upper back incision. Will increase oxycodone to 10 mg q 4 hrs prn. Epidural site shows no tenderness to palpation, no active bleeding, erythema, nor purulence. Small area of induration from subcutaneous hematoma which formed during removal. Has not increased in size. May use lorazapem for muscle spasms. If inadequate, might switch to tizanadine.
[2019-08-04] MEDS: lactulose oral liq 20 gm/30 mL UDC 30 GM PO (08:21)
[2019-08-04] MEDS: bisacodyl 5 mg Tablet 10 MG PO (08:22)
--- NOTE | 2019-08-04 08:29 | P.PN_ITS ---
Subjective Subjective: Interval history: Postop day #4 status post left upper lobectomy. Up in chair on rounds. Looks quite good. Thoracotomy discomfort under good control. Pathology still pending. Chest tube output less than 100 cc over the past 12 hours overnight. No air leak. Chest x-ray is clear. Vitals/I&O/Wt Last Vital Signs Temp 98.4 F 08/04/19 07:24 Pulse 59 L 08/04/19 07:24 Resp 18 08/04/19 07:24 BP 167/81 08/04/19 07:24 Pulse Ox 91 08/04/19 07:24 08/03/19 08/04/19 08/04/19 22:59 06:59 14:59 Intake Total 300 / 1020 360 / 1380 Output Total 550 / 550 868 / 1418 Balance -250 / 470 -508 / -38 Physical Exam Chest: COMMONS NORMALS: inspection of chest normal (Dressings are dry. Chest wall stable.) Resp: COMMON NORMALS: normal respiratory effort, no use of accessory muscles and clear to auscultation bilaterally EFFORT & INSPECTION: Yes able to speak in complete sentences AUSCULTATION: clear to auscultation bilaterally Cardio: COMMON NORMALS: regular rate and regular rhythm RATE: regular rate RHYTHM: regular rhythm Urinary Catheter Management^: Yeager: Cath Placed During This Visit: yes Reason for Continuing Indwelling Catheter: Accurate Measurement of Urinary Output in Critically Ill Patients Urinary Catheter Date of Insertion: 07/31/19 Urinary Catheter Time of Insertion: 10:05 Data : 08/04/19 02:01 08/04/19 02:01 A&P Assessment and plan (1) Status post lobectomy of lung: Postop day #4 status post left upper lobectomy. [facility] low chest tube output. Plan: Will plan to remove chest tube later today and continue with plans for discharge tomorrow with home health services. Status: Acute Attestations Medical Necessity Statement*: Status post left upper lobectomy Time Spent in Patient Care: less than 15 minutes Coding Level of Care Code Acute Trim Carpenter for Shandra Fwfaye Diagnoses Status post lobectomy of lung Z90.2
[2019-08-04] MEDS: escitalopram 10 mg Tablet 20 MG PO (08:54)
[2019-08-04] MEDS: aspirin 81 mg Chew Tablet PO (08:54)
[2019-08-04] MEDS: pantoprazole DR 40 mg Tablet PO (08:55)
[2019-08-04] MEDS: metoprolol tartrate 50 mg Tablet 100 MG PO ×2 (08:55→17:34)
[2019-08-04] MEDS: gabapentin 300 mg Capsule PO ×4 (08:55→20:42)
[2019-08-04] MEDS: isosorbide mononitrate ER 30 mg Tablet PO ×2 (08:55→17:34)
--- NOTE | 2019-08-04 10:14 | PC.NURSE ---
Patient in bed, she rec. partial bedbath. She requested a shower when her chest-tube and huertas is removed.
[2019-08-04] MEDS: oxyCODONE 5 mg IR Tab/Cap 10 MG PO ×2 (14:30→20:42)
--- NOTE | 2019-08-04 16:37 | PC.NURSE ---
Patient up for shower, kody well. Incision and chest tube site painted, covered with coverderm. Patient voiding without difficulty. Patient states she feels so much better this afternoon. She is setting up in her chair.
[2019-08-05] VITALS (10 sets, daily range): BP systolic 123–175; BP diastolic 63–87; PULSE 60–77; RESP 18–20; TEMP 35.5–37.1; O2SAT 88–99
[2019-08-05] MEDS: acetaminophen 500 mg Tablet 1000 MG PO ×2 (00:40→08:21)
[2019-08-05] MEDS: oxyCODONE 5 mg IR Tab/Cap 10 MG PO ×2 (00:40→11:52)
--- NOTE | 2019-08-05 05:35 | PC.NURSE ---
Rash Pt. noted to have red raised maculopapular rash to left ribs and axilla that extends onto the left breast and left abdomen and down across the left hip and buttock area. Pt. had called this nurse into room due to c/o left side itching and burning sensation , rash was not present at start of shift. Pt. has not taken any new medications this shift. Pt. did take shower during evening of day shift and has been sweating some during the night.
--- NOTE | 2019-08-05 06:00 | XRR_ITS ---
PROCEDURE INFORMATION: Exam: XR Chest, 1 View Exam date and time: 08/05/2019 5:56 AM Age: 68 years old Clinical indication: Chest pain; Type not specified; Prior surgery; Surgery date: 3-7 days post-operative; Surgery type: Left upper lovectomy; Patient HX: Cabg; Additional info: Chest tube removed. . . S/P left upper lobectomy TECHNIQUE: Imaging protocol: XR of the chest Views: 1 view. COMPARISON: CR XR chest 1V portable [id number] 08/04/2019 5:36 AM FINDINGS: Tubes, catheters and devices: There has been interval removal of the left thoracostomy tube. Lungs: Unremarkable. No consolidation. Pleural space: There is a persistent right pleural effusion. There is a residual tiny left apical pneumothorax. Heart/Mediastinum: Unremarkable. No cardiomegaly. Bones/joints: Unremarkable. XR/XR chest 1V portable [id number] IMPRESSION: 1. There is a tiny persistent left apical pneumothorax status post removal of the left thoracostomy tube. 2. Persistent right pleural effusion
[2019-08-05] MEDS: pantoprazole DR 40 mg Tablet PO (08:21)
[2019-08-05] MEDS: metoprolol tartrate 50 mg Tablet 100 MG PO (08:21)
[2019-08-05] MEDS: aspirin 81 mg Chew Tablet PO (08:22)
[2019-08-05] MEDS: isosorbide mononitrate ER 30 mg Tablet PO (08:22)
[2019-08-05] MEDS: gabapentin 300 mg Capsule PO (08:22)
[2019-08-05] MEDS: ipratropium-albuterol 3 mL Neb INHALATION (08:27)
--- NOTE | 2019-08-05 08:35 | PM.DCS ---
Discharge Providers Date of Admission: 07/31/19 07:39 Date of Discharge: August 05, 2019 Attending Provider at Admission: Jp Olguin MD Attending Provider at Discharge: Jp Olguin MD Primary Care Provider: Elmer Álvarez MD Diagnoses at Discharge Discharge Diagnosis (1) Status post lobectomy of lung: Status: Acute Reason for Visit Reason for Visit: Reason For Visit: Lung Mass Hospital Course Discharge Summary: 68-year-old female referred to our service for a left upper lobe lesion with increased activity on PET scan, concerning for malignancy. Long history of tobacco use previously. She was likely admitted on July 30 and underwent left upper lobectomy. 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 Postoperative, she convalesced in the ICU where she did well with small air leak resolving in about 36 hours. She was then transferred to the panda continue to do well with chest tube output slowly decreasing. Thoracotomy discomfort was controlled well with epidural catheter which was then transitioned to oral narcotics. Chest tube was discontinued yesterday. Very small apical pneumothorax has remained stable on this morning's x-ray. She is ambulating without assistance. Home oxygen evaluation is currently being completed by respiratory therapy to determine any outpatient oxygen needs. Thoracotomy incision clean and dry. Right side well approximated. Tolerating diet well. Home health referral has been arranged. She will be discharged today to home in stable condition. Physical Exam Chest: COMMONS NORMALS: inspection of chest normal (Thoracotomy incision is healing well. Drain sites well approximated. She does appear to have developed a small exanthem related to perhaps adhesive from the dressing. Dressings will be left off.) Resp: COMMON NORMALS: normal respiratory effort and clear to auscultation bilaterally EFFORT & INSPECTION: Yes able to speak in complete sentences AUSCULTATION: clear to auscultation bilaterally Cardio: COMMON NORMALS: regular rate, regular rhythm, S1 normal heart sound, no murmurs and no rub RATE: regular rate RHYTHM: regular rhythm HEART SOUNDS: S1 normal Urinary Catheter Management^: Yeager: Cath Placed During This Visit: yes, but has since been removed by the nurse Reason for Continuing Indwelling Catheter: Accurate Measurement of Urinary Output in Critically Ill Patients Urinary Catheter Date of Insertion: 07/31/19 Urinary Catheter Time of Insertion: 10:05 Date Urinary Catheter Removed: 08/04/19 Time Urinary Catheter Discontinued: 12:45 Discharge Data Data Completed and Pending: Completed Studies During Hospitalization Category Date Time Status XR chest 1V benjie ble [id number] Routine Exams 07/31/19 13:58 Completed XR chest 1V benjie ble [id number] Routine Exams 08/01/19 06:00 Completed XR chest 1V benjie ble [id number] Routine Exams 08/02/19 06:00 Completed XR chest 1V benjie ble [id number] Routine Exams 08/03/19 06:00 Completed XR chest 1V benjie ble [id number] Routine Exams 08/04/19 06:00 Completed XR chest 1V benjie ble [id number] Routine Exams 08/05/19 06:00 Completed Pathology: Frozen Section [PTH] Sta t Pth 07/31/19 12:19 Completed Pending at discharge Category Date Time Status Pathology: Surgic al [PTH] Routine Pth 07/31/19 12:57 Received Vitals: Last Vital Signs Temp 98.8 F 08/05/19 08:00 Pulse 77 08/05/19 08:33 Resp 18 08/05/19 08:27 BP 170/65 08/05/19 08:00 Pulse Ox 94 08/05/19 08:27 Discharge Plan Discharge Patient Disposition: Home Health Service Condition: Stable Prescriptions: New Lorcet Plus 7.5-325 mg tablet 1 tab PO Q8H PRN (Reason: pain) Qty: 14 RF: 0 Continued hydrocodone-acetaminophen 7.5-325 mg tablet 1 tab PO Q8H PRN (Reason: Pain) RF: 0 clopidogrel 75 mg tablet 75 mg PO DAILY RF: 0 gabapentin 300 mg capsule 300 mg PO QID RF: 0 isosorbide mononitrate 30 mg tablet extended release 24 hr 30 mg PO BID RF: 0 lorazepam 0.5 mg tablet 0.5 mg PO TID PRN (Reason: Anxiety) RF: 0 metoprolol tartrate 100 mg tablet 100 mg PO BID RF: 0 nitroglycerin 0.4 mg tablet, sublingual 0.4 mg SUBLINGUAL Q5M PRN (Reason: Chest Pain) RF: 0 escitalopram oxalate [Lexapro] 20 mg Tablet 20 mg PO DAILY RF: 0 Discharge Orders: Discharge Order (Routine); Ordered 08/05/19 Ordered By: Jp Olguin Referrals: [facility] [Outside] Jp Olguin MD [Physician] - 08/10/19 (With single view CXR performed day of clinic visit and prior to clinic visit) Discharge Diet: Usual diet Discharge Activity: Increase activity as tolerated Activity Restrictions/Additional Instructions: May shower daily May leave incisions open Frequent use of incentive spirometer No smoking Discharge Attestations Time Spent in Discharge Care*: less than 30 min Specific Discharge Activities: Specific discharge activities: educating patient, discussing with telephonic nurse case manager/social workers/dc planners, documenting/other paperwork and evaluating patient/reviewing data Time Spent in Smoking Cessation: Time spent discussing smoking cessation with patient: 3 to 10 minutes Status at Discharge: Cognitive status at discharge: cognitively intact, Functional status at discharge: independent ambulation Overall status at discharge: patient is progressing back to baseline Quality Metrics Clinical Quality Measures During this hospital stay, did patient experience: None Coding Level of Care Code Acute Food Adviser for Shandra Vanessa Diagnoses Status post lobectomy of lung Z90.2
[2019-08-05] MEDS: escitalopram 10 mg Tablet 20 MG PO (10:45)
--- NOTE | 2019-08-05 11:28 | PC.NURSE ---
Patient dressed self with no assist. She declined taking a shower, she stated she had one the day before and would rather not take one until she got home. Patient given IS for home use, she demonstrated how to use. Patient received oxygen safety instructions, stressed to patient if she smoked to not have oxygen in use.
--- NOTE | 2019-08-05 12:24 | PC.NURSE ---
0810 removed patients dressing to surgical site and chest tube. Patient has a fine raised rash under dressing. Dr. Rowley seen patient and requested dressing to be left off.
== END 2019-08-05 13:00 | disposition home health service (06) | DRG 164 ==
LOC: ICU 07:42 → MEDSURG 08-01 20:46
PROVIDERS: Admitting Provider Thoracic Surgery (Cardiothoracic Vascular Surgery); PCP Family Medicine; Visit Provider Thoracic Surgery (Cardiothoracic Vascular Surgery)
PROC: 0W9B30Z Drainage of Left Pleural Cavity with Drainage Device, Percutaneous Approach (ICD-10-PCS; CPT 32480; principal; 2019-07-31 09:40)
DX: R91.8 Other nonspecific abnormal finding of lung field (principal); J95.811 Postprocedural pneumothorax; J98.11 Atelectasis; Z87.891 Personal history of nicotine dependence; Z79.891 Long term (current) use of opiate analgesic; Z95.1 Presence of aortocoronary bypass graft
CPT/HCPCS: 12345; 36415; 51702; 71045; 80048; 81001; 85025; 85610; 86850; 86900; 86920; 88305; 88309; 93005; 94640; 94660; 94664; 96374; 96375; J0690; J1100; J1885; J2001; J2250; J2270; J2405; J2704; J2710; J2795; J3010; J3370; J3490; J7030; P9016

== ENCOUNTER 2019-08-17 15:02 | Outpatient (CLI) | payer MEDICARE, SELFPAY ==
--- NOTE | 2019-08-17 15:12 | XR_ITS ---
WS: [id number] CHEST, 1 view. HISTORY: lobectomy COMPARISON: 2019 Prior median sternotomy. Prior LEFT upper lobectomy. Postsurgical changes at the LEFT hilum are stabl e. Improved aeration in the central LEFT lung. Volume loss with no pneumonia. Small amount of pleural thickening at the LEFT costophrenic angle. RIGHT lung is clear. No pneumothorax. Cardiac size: Normal. Mediastinum/Aorta: No mediastinal widening. Mild atherosclerosis aorta. RIGHT calcific tendinitis. XR/XR chest 1V [id number] IMPRESSION: 1. Prior LEFT upper lobectomy with improved aeration since 08/05/2019. 2. No pneumonia.
== END 2019-08-17 15:03 | disposition home or self-care (01) ==
LOC: RAD 15:06
PROVIDERS: PCP Family Medicine; Visit Provider Thoracic Surgery (Cardiothoracic Vascular Surgery)
DX: Z90.2 Acquired absence of lung [part of] (principal)
CPT/HCPCS: 71045

== ENCOUNTER 2019-12-27 09:06 | Outpatient (CLI) | payer MEDICARE, SELFPAY ==
--- NOTE | 2019-12-27 09:14 | NM_ITS ---
WS: [id number] NUCLEAR MEDICINE BONE SCAN Radiopharmaceutical: 22.5 Tc-99m MDP mCi IV Injection site: Right antecubital Postinjection imaging delay: 1 hr CLINICAL INFORMATION: SEVERE L SHOULDER PAIN/HX:BINA CA/?METS COMPARISON: None. FINDINGS: Bone lesions: There are no osseous lesions suspicious for metastatic disease. No abnormal humeral sha ft uptake. Soft tissue contours: Normal. Kidneys: Normal. Other findings: Degenerative arthritis at the left greater than right AC joints and glenohumeral join ts. Small amount of degenerative facet uptake involving the left lower cervical spine. Postoperative changes right TKA. NM/NM bone scan whole body* [id number] IMPRESSION: 1. No evidence of osseous metastatic disease.
== END 2019-12-27 09:07 | disposition home or self-care (01) ==
LOC: NM 09:11
PROVIDERS: PCP Family Medicine; Visit Provider Family Medicine
DX: M25.512 Pain in left shoulder (principal)
CPT/HCPCS: 78306; A9561